=== PATIENT | female | born 1950 | race Caucasian/White ===

== ENCOUNTER 2017-06-24 18:21 | Emergency (ER) | payer MEDICARE ==
[2017-06-24 18:31] VITALS: BP 142/85
--- NOTE | 2017-06-24 18:50 | ERNOTE ---
ENT HPI Presenting Symptoms: eye pain - with drainage Time Seen by Provider: 06/24/17 18:37 Source: patient Exam Limitations: no limitations - Immun/Allergies/Home Medications Immunizations: IMMUNIZATION HX Immunizations Up to Date Yes History of Influenza Vaccine Yes Hx Pneumococcal Vaccination Yes Allergies/Adverse Reactions: Allergies Allergy/AdvReac Type Severity Reaction Status Date / Time No Known Allergies Allergy Unverified 06/24/17 18:32 Home Medications: HOME MEDICATIONS Polymyxin B Sulf/Trimethoprim [Polytrim Eye Drops] 2 drop RIGHTEYE QID #10 ml [Last Taken Unknown] Pravastatin Sodium [Pravachol] 20 mg PO DAILY 06/24/17 [Last Taken Unknown] - History of Present Illness Narrative: Patient thinks she possibly got some kind of infection under her contact lens. She shows up with eye pain and a mucopurulent drainage, onset today moderate severity. Severity: Present: moderate ENT Location: Present: eye (R) Prearrival Treatment: Present: no prearrival treatment Modifying Factors - Improves: Reports: nothing Modifying Factors - Worsens: Reports: nothing Associated Symptoms - ENT: Reports: denies symptoms Review of Systems - Review of Systems Constitutional: Present: See HPI EYE: Present: see HPI ENT: Present: no symptoms reported Respiratory: Present: no symptoms reported Cardiology: Present: no symptoms reported Gastrointestinal/Abdominal: Present: no symptoms reported Genitourinary: Present: no symptoms reported Musculoskeletal: Present: no symptoms reported Skin: Present: no symptoms reported Neurological: Present: no symptoms reported Endocrine: Present: no symptoms reported Hematologic/Lymphatic: Present: no symptoms reported Psych: Present: no symptoms reported - Patient's Past Medical History Patient History - Medical: No pertinent hx Patient History - Cardiac/Respiratory: Hyperlipidemia Patient History - Cancer: No Hx of Cancer Patient History - Surgical Procedures: No surgical history Patient History - Other: None - Social History Living Situations: spouse Abuse History: No History of abuse Psych History: No pertinent hx Smoking Status: Never smoker Have you smoked in the past 12 months: No Do you dip or chew tobacco: No Alcohol Use: none Drug Use: none - Immunizations Immunizations Up to Date: Yes Hx Pneumococcal Vaccination: Yes History of Influenza Vaccine: Yes Physical Exam - Physical Exam General Appearance: Present: wd/wn, alert, mild distress Head Exam: Present: normal inspection, no evidence of injury Eye Exam: PERRL: bilateral, EOMI: bilateral, Eye drainage: right - reluctant Ears, Nose, Throat: Present: normal ENT inspection, H, normal pharynx Neck: Present: normal inspection, nontender Respiratory: Present: no respiratory distress, normal breath sounds, no accessory muscle use, chest nontender, lungs clear Cardiovascular/Chest: Present: regular rate, rhythm, no murmur, normal peripheral pulses Gastrointestinal/Abdominal: Present: normal bowel sounds, nontender, nondistended, soft, no organomegaly Rectal Exam: Present: deferred Back Exam: Present: normal inspection, normal range of motion Extremity Exam: Present: normal inspection, non-tender, no edema, normal range of motion Neurological Exam: Present: alert, oriented, normal mood/affect Skin Exam: Present: normal color, warm/dry Lymphatic Exam: Present: no adenopathy ED Progress - Vital Signs Patient's Vital Signs:: I have reviewed the patient's vital signs. Vital Signs: Vital Signs 06/24/17 18:26 Temperature 36.8 C Pulse Rate 93 Respiratory 16 Rate Blood Pressure 142/85 O2 Sat by Pulse 98 Oximetry - Progress/Reassessment Chief Complaint: Eye Injury/Trauma Plan - Plan Plan: Patient appears to have conjunctivitis and she was instructed to not wear her contact lenses until the infection cleared itself out. Departure Clinical Impression: Conjunctivitis Qualifiers: Conjunctivitis type: acute Acute conjunctivitis type: bacterial Laterality: right Qualified Code(s): H10.31 - Unspecified acute conjunctivitis, right eye - Departure Disposition: Home self-care Condition: Good Instructions: Bacterial Conjunctivitis, [id number] Additional Instructions: Do not wear your contacts until the infection clears Prescriptions: Polymyxin B Sulf/Trimethoprim [Polytrim Eye Drops] 2 drop RIGHTEYE QID #10 ml
== END 2017-06-24 18:54 | disposition home or self-care (01) ==
LOC: ER 18:21
DX: E78.5 Hyperlipidemia, unspecified; H10.31 Unspecified acute conjunctivitis, right eye